=== PATIENT | female | born 1985 | race Caucasian/White ===

== ENCOUNTER 2018-11-18 22:03 | Emergency (ER) | payer OTHER | END 2018-11-19 01:59 | disposition home or self-care (01) | LOC: JER 11-19 01:59 ==

== ENCOUNTER 2019-05-05 02:30 | Inpatient (IN) | payer OTHER ==
[2019-05-05] MEDS ORDERED: AMPICILLIN SODIUM 2 GM VIAL ONE (03:26)
[2019-05-05 03:43] LABS: BASO % 0.9 % (0-2.0); EOS % 0.8 % (0-4.5); HEMATOCRIT 31.3 % (32.4-45.2); HEMOGLOBIN 10.4 GM/dL (10.7-15.3); LYMPH % 23.6 % (8-40); MCH 31.2 pg (25.7-33.7); MCHC 33.2 g/dl (32.0-36.0); MEAN CELL VOLUME 93.9 fl (80-96); MEAN PLT VOLUME 10.8 fl (7.5-11.1); NEUT % 66.7 % (42.8-82.8); PLATELET COUNT 242 K/MM3 (134-434); RBC 3.33 M/mm3 (3.60-5.2); RDW 12.9 % (11.6-15.6); WHITE BLOOD COUNT 10.4 K/mm3 (4.0-10.0)
[2019-05-05] MEDS ORDERED: OXYTOCIN 20 UNITS in 0.9% NS 20 UNIT/1,000 ML INFUS.BAG IV ONE ×2 (03:52→05:09)
[2019-05-05 04:07] LABS: INR 0.87 (0.83-1.09); PROTHROMBIN TIME (PATIENT) 10.2 SEC (9.7-13.0)
[2019-05-05 04:10] LABS: ACTIVATED PTT 25.4 SECONDS (25.2-36.5)
[2019-05-05 04:14] LABS: BLOOD UREA NITROGEN 11.2 mg/dL (7-18); CALCIUM 8.7 mg/dL (8.5-10.1); CREATININE 0.7 mg/dL (0.55-1.3)
[2019-05-05] MEDS ORDERED: LIDOCAINE HCL 1% PRESERVATIVE FREE - 30ML VIAL ONE (04:17)
[2019-05-05] MEDS: OXYTOCIN 20 UNITS in 0.9% NS 20 UNIT/1,000 ML INFUS.BAG IV SCH ×2 (04:30→05:57)
[2019-05-05] MEDS: ACETAMINOPHEN 325 MG TABLET (FP) PO PRN ×2 (04:30→08:42)
[2019-05-05] MEDS: IBUPROFEN 600 MG TABLET (FP) PO PRN ×2 (04:30→08:41)
[2019-05-05] MEDS ORDERED: IBUPROFEN 600 MG TABLET (FP) PO ONE (04:34)
[2019-05-05] MEDS ORDERED: ACETAMINOPHEN 325 MG TABLET (FP) ONE (04:35)
[2019-05-05] MEDS ORDERED: AMPICILLIN - 2 GM in SODIUM CHLORIDE 100 ML IVPB STA (04:39)
[2019-05-05] MEDS ORDERED: DEXTROSE 5%-LACTATED RINGERS 1,000 ML IV SCH (04:45)
[2019-05-05] MEDS ORDERED: BISACODYL 10 MG SUPP.RECT RC PRN (04:50)
[2019-05-05] MEDS ORDERED: WITCH HAZEL 50% (TUCKS) 40 PAD/JAR PAD TP PRN (04:50)
[2019-05-05] MEDS ORDERED: BENZOCAINE 20% 57 GM BOTTLE TP PRN (04:50)
[2019-05-05] MEDS ORDERED: BENZOCAINE 28 GM HEMORRHOIDAL OINTMENT TP PRN (04:50)
[2019-05-05] MEDS ORDERED: METHYLERGONOVINE MALEATE 0.2 MG/1 ML AMP IM PRN (04:50)
[2019-05-05] MEDS ORDERED: oxyCODONE HCL 5 MG TABLET PO PRN (04:50)
--- NOTE | 2019-05-05 05:09 | HP ---
Past Medical History - Primary Care Physician PCP:: Evette Teixeira - Admission Chief Complaint: 33 yrs 37.4 weeks admitted in active labor . onset LP at midnight History of Present Illness: pnc at [address] [place] [address] . wt gain 15 lbs Panel : 10/13/18 : O Pos, Rpr nr, Hiv nr, Hbsag neg, Hep c nr , Sickle neg , Varicella immune, Rubella immune , Pap NILM, Non 16/18 HR HPV Pos , gc/ct neg 01/22/2019 h/h 10.5/32.6, Quantiferon neg, Hiv neg ,rpr neg , hep c neg, 1 hr gct : 92 36 weeks cultures not available Sonogram 11/25/2018: 16 weeks ,sliup, edc assigned 05/06/19 NT neg . 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 Weeks Gestation by Dates: 37.4 ...EDC by Dates: 05/22/19 ...EDC by Sono: 05/06/19 (39.6 weeks by sono ) Heme/Onc: Yes: Anemia (rx po iron & pnv) Infectious Disease: No: AIDS, HIV, STD's, Tuberculosis Psych: No: Addictions, Anxiety, Bipolar, Depression, Panic, Psychosis, Schizophrenia, Other Endocrine: No: Diabetes Insipidus, Diabetes Mellitus, Hyperthyroidism, Hypothyroidism - Past Surgical History Hx Myomectomy: No Hx Transabdominal Cerclage: No Additional Surgical History: left big toe surgery in 2017 - Smoking History Smoking history: Never smoked - Alcohol/Substance Use Hx Alcohol Use: No History of Substance Use: reports: None - Social History History of Recent Travel: No Home Medications - Allergies Allergies/Adverse Reactions: Allergies Allergy/AdvReac Type Severity Reaction Status Date / Time No Known Allergies Allergy Verified 05/05/19 04:02 - Home Medications Home Medications: Ambulatory Orders Vitamins (Sjr) - 1 tab PO DAILY 05/05/19 Physical Exam - Maternity Vital Signs: Selected Entries 05/05/19 04:02 Weight 165 lb 2.30 AM : Temp; 97.6, Pulse :95, BP 120/76 Constitutional: Yes: Well Nourished, Obese Eyes: Yes: WNL, PERRL HENT: Yes: WNL Neck: Yes: WNL Cardiovascular: Yes: WNL, Regular Rate and Rhythm Lungs: Clear to auscultation Breast(s): Yes: WNL - Abdominal Exam/OB Fundal Height: 38 Number of Fetuses: Single Presentation: Vertex Contractions: Yes Regularity: Regular (3-4) Intensity: Strong Monitor Mode: External Heart Rate (range): 140-150 Heart Rate Location: Midline Category: I Accelerations: Uniform Decelerations: None - Vaginal Exam/OB Vaginal Bleediing: No Speculum Exam: No Dilatation (cm): 6 Effacement (%): 100 Amniotic Membrane Status: Intact Presentation: Vertex/Position (exam at 2.35 AM) Station: -2 - Physical Exam Musculoskeletal: Yes: WNL Extremities: Yes: WNL. No: Calf Tenderness Edema: LLE: 1+, RLE: 1+ Integumentary: Yes: WNL Deep Tendon Reflex Grade: Normal +2 ...Motor Strength: WNL Psychiatric: Yes: WNL, Alert - Labs Lab Results: CBC, BMP 05/05/19 03:25 05/05/19 03:25 Laboratory Tests 05/05/19 05/05/19 03:25 03:25 PT with INR 10.20 INR 0.87 PTT (Actin FS) 25.4 Blood Type O POSITIVE Hemorrhage Risk Assessment - Risk Factors Risk Score: 1 Risk Level: Medium Risk Problem List - Problems (1) with 39 completed weeks gestation Code(s): Z3A.39 - 39 WEEKS GESTATION OF (2) Labor established Code(s): FJC5181 - Assessment/Plan 33 yrs , 39.6 weeks admitted in active labor . discrepancy dates & sono since Gbs unknown pt was given one dose of Iv Ampicillin 2 gm as prophylaxis at 3.00 AM Plan vaginal delivery 4.08 AM fully dilated & srom , , vx +3 station , fhr 130- 90 4.10 AM
[2019-05-05 05:23] VITALS: BMI 25.8
--- NOTE | 2019-05-05 05:33 | PN ---
Delivery - Delivery Vaginal Delivery: No Problems, Spontaneous ( , vx OA position, , shoulders delivery without difficulty , immediate oral & nasal suction was done ,cord around baby's foot noted , baby girl , 9/9 placenta & membranes delievered completely at 4.15 AM .1st degree laceration vaginal bleeding , was noted , sutured with chr catgut #2/0 under local anesthesia . . 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
[2019-05-05] MEDS: FERROUS SO4 325 MG TABLET (FP) PO SCH ×2 (08:41→18:00)
[2019-05-05] MEDS ORDERED: AMPICILLIN - 1 GM in SODIUM CHLORIDE 100 ML IVPB SCH (10:00)
[2019-05-05] MEDS: PRENATAL VITAMINS W/ FOLIC ACID TABLET (FP) PO SCH (10:20)
[2019-05-06] MEDS: IBUPROFEN 600 MG TABLET (FP) PO PRN ×2 (07:44→16:58)
[2019-05-06] MEDS: ACETAMINOPHEN 325 MG TABLET (FP) PO PRN ×2 (07:45→16:59)
[2019-05-06] MEDS: FERROUS SO4 325 MG TABLET (FP) PO SCH ×2 (07:45→16:56)
--- NOTE | 2019-05-06 08:35 | PN ---
Post Progress Note - Subjective Subjective: Ambulating, breast feeding, tolerating PO, lochia decreased Post Day: 1 Type of Delivery: Vital Signs: Vital Signs Temperature 98.3 F 05/06/19 01:00 Pulse Rate 68 05/06/19 01:00 Respiratory Rate 18 05/06/19 01:00 Blood Pressure 116/73 05/06/19 01:00 O2 Sat by Pulse Oximetry (%) 100 05/05/19 05:30 Breast Exam: Yes: Other (deferred) Uterus: Yes: Fundus Firm Abdomen/GI: Yes: Abdomen soft Lochia, amount: Small Extremities: Yes: Calves non-tender Activity: Ambulating - Labs Labs: CBC WBC 10.4 K/mm3 (4.0-10.0) H 05/05/19 03:25 RBC 3.33 M/mm3 (3.60-5.2) L 05/05/19 03:25 Hgb 10.4 GM/dL (10.7-15.3) L 05/05/19 03:25 Hct 31.3 % (32.4-45.2) L 05/05/19 03:25 MCV 93.9 fl (80-96) 05/05/19 03:25 MCH 31.2 pg (25.7-33.7) 05/05/19 03:25 MCHC 33.2 g/dl (32.0-36.0) 05/05/19 03:25 RDW 12.9 % (11.6-15.6) 05/05/19 03:25 Plt Count 242 K/MM3 (134-434) 05/05/19 03:25 MPV 10.8 fl (7.5-11.1) D 05/05/19 03:25 Absolute Neuts (auto) 6.9 K/mm3 (1.5-8.0) 05/05/19 03:25 Neutrophils % 66.7 % (42.8-82.8) 05/05/19 03:25 Lymphocytes % 23.6 % (8-40) 05/05/19 03:25 Monocytes % 8.0 % (3.8-10.2) 05/05/19 03:25 Eosinophils % 0.8 % (0-4.5) D 05/05/19 03:25 Basophils % 0.9 % (0-2.0) 05/05/19 03:25 Nucleated RBC % 0 % (0-0) 05/05/19 03:25 Assessment/Plan PP # 1 in stable condition, PP precautions discussed and all questions answered.
[2019-05-06] MEDS: PRENATAL VITAMINS W/ FOLIC ACID TABLET (FP) PO SCH (09:49)
[2019-05-06 10:47] LABS: BASO % 0.8 % (0-2.0); EOS % 0.9 % (0-4.5); HEMATOCRIT 31.3 % (32.4-45.2); HEMOGLOBIN 10.3 GM/dL (10.7-15.3); LYMPH % 11.2 % (8-40); MCH 31.2 pg (25.7-33.7); MEAN CELL VOLUME 94.4 fl (80-96); MEAN PLT VOLUME 9.8 fl (7.5-11.1); MONO % 5.4 % (3.8-10.2); NEUT % 81.7 % (42.8-82.8); PLATELET COUNT 209 K/MM3 (134-434); RBC 3.31 M/mm3 (3.60-5.2); RDW 13.2 % (11.6-15.6)
[2019-05-06] MEDS ORDERED: SENNOSIDES/DOCUSATE COMBO (SENNA PLUS) TABLET (UD) PO PRN (22:00)
--- NOTE | 2019-05-07 07:32 | DS ---
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 Vital Signs: Vital Signs Temperature 98.3 F 05/06/19 22:00 Pulse Rate 68 05/06/19 22:00 Respiratory Rate 18 05/06/19 22:00 Blood Pressure 111/70 05/06/19 22:00 O2 Sat by Pulse Oximetry (%) 100 05/05/19 05:30 Constitutional: Yes: Well Nourished, No Distress, Calm Eyes: Yes: WNL, Conjunctiva Clear, EOM Intact HENT: Yes: WNL, Atraumatic, Normocephalic Neck: Yes: WNL, Supple, Trachea Midline Cardiovascular: Yes: WNL, Regular Rate and Rhythm Respiratory: Yes: WNL, Regular, CTA Bilaterally Gastrointestinal: Yes: WNL ...Rectal Exam: Yes: WNL Renal/: Yes: WNL External Genitalia: Yes: Normal ....Post : Yes: Uterus firm, Uterus non-tender, Slight lochia rubra Breast(s): Yes: WNL Musculoskeletal: Yes: WNL Extremities: Yes: WNL Edema: No Integumentary: Yes: WNL Neurological: Yes: WNL, Alert, Oriented ...Motor Strength: WNL Psychiatric: Yes: WNL, Alert, Oriented Labs: CBC, BMP 05/06/19 10:23 05/05/19 03:25 Delivery - Delivery Vaginal Delivery: No Problems, Spontaneous ( , vx OA position, , shoulders delivery without difficulty , immediate oral & nasal suction was done ,cord around baby's foot noted , baby girl , 9/9 placenta & membranes delievered completely at 4.15 AM .1st degree laceration vaginal bleeding , was noted , sutured with chr catgut #2/0 under local anesthesia . . [place] exam mucosa & sphincter intact) Type of Anesthesia: Local Episiotomy/Laceration: Vaginal Extension/lac, 1st degree EBL (cc): 300 Delivery, Single - Stages of Labor Date 1st Stage Initiatied: 05/05/19 Time 1st Stage Initiated: 00:00 Date 2nd Stage Initiated: 05/05/19 Time 2nd Stage Initiated: 04:08 Date of Delivery: 05/05/19 Time of Delivery: 04:10 Time Placenta Delivered: 04:15 Placenta: Yes: Spontaneous, Uterine Exploration - Condition of Infant Medical Technologist Microbiology/Grants Manager Present: No Infant Gender: Female Weight: 7 lb 14 oz Position: OA Total Hours ROM (Hrs/Mins): 7min - 1 Minute Total Score: 9 5 Minutes Total Score: 9 - Feeding Plan Initial Plan: Elected not to breastfeed exclusively throughout hospitalization Discharge Summary Reason For Visit: LABOR ADMIT Current Active Problems Anemia (Acute) Labor established (Acute) Normal spontaneous vaginal delivery (Acute) with 39 completed weeks gestation (Acute) Procedures: Principal: Other Procedures: none Hospital Course: uneventful Health Concerns: anemia Plan of Treatment: iron, vit Goals: hb 12, breast feeding, follow up at [facility] care 4 weeks Condition: Good - Instructions Diet, Activity, Other Instructions: Post Instructions DIET: Continue good diet high in protein, calcium, and iron rich foods. Drink at least eight (8) glasses of water daily in addition to other fluids. ct Regular diet MEDICATIONS: Continue vitamins and iron as previously directed. Motrin and Tylenol may be taken for minor discomfort. ACTIVITY: Mild to moderate exercise may be started in two (2) weeks. Take frequent rest periods. Resume normal activity after six (6) week check up. WOUND CARE OF OPERATIVE SITE: Continue use of perineal bottle until vaginal discharge stops. Keep area clean. Shower daily. Keep abdominal wound dry. Report any drainage or redness to physician. Tub baths, tampons and douches are not permitted for [address] Breast feeding & or Bottle feeding BREAST CARE: (For those that are not ): If engorgement occurs: Wear tight fitting bra. Take Tylenol or Motrin for pain. Apply cold packs (ice in bags to each breast ) FAMILY PLANNING: There are many control alternatives to pursue and they should be discussed at your first office visit. You may resume sexual activity after your six (6) week check up. (Remember, is not a contraceptive) NEXT PHYSICIAN APPOINTMENT: Be certain to call for a four -six (4-6) week appointment, unless otherwise directed. Call Clinic or got to Emergency Dept if you have any of the following: Heavy vaginal bleeding Painful urination Leg pain Unusual odor noted to vaginal bleeding High fever Red streaking noted on breast Referrals: Evette Teixeira MD [Staff Physician] - Young Feng MD [Primary Care Provider] - Disposition: HOME - Home Medications Comprehensive Discharge Medication List: Ambulatory Orders Vitamins (Sjr) - 1 tab PO DAILY 05/05/19 Acetaminophen [Tylenol .Regular Strength -] 650 mg PO Q3H PRN tablet 05/06/19 Benzocaine [Americaine 20% [place] -] 1 spray TP PRN PRN bottle 05/06/19 Ferrous Sulfate [Feosol] 325 mg PO BIDWM #60 tab 05/06/19 Ibuprofen [Motrin -] 200 mg PO Q4H PRN tablet 05/06/19 Vitamins (Sjr) - 1 tab PO DAILY #30 tablet 05/06/19 Witch [place] 50% (Tucks) [Tucks Pads -] 1 pad TP PRN PRN pad 05/06/19
--- NOTE | 2019-05-07 07:34 | PN ---
Progress Note (short form) - Note Progress Note: ppd 2 s/p , no c/o, no excess vaginal bleeding CBC, BMP 05/06/19 10:23 05/05/19 03:25 Last Vital Signs Temp Pulse Resp BP Pulse Ox 98.3 F 68 18 111/70 100 05/06/19 22:00 05/06/19 22:00 05/06/19 22:00 05/06/19 22:00 05/05/19 05:30 uterus firm , non tender lochia mild no calf tenderness plan ambulate , d/c home today follow up H care 4 weeks, cont pnv, iron
[2019-05-07] MEDS: IBUPROFEN 600 MG TABLET (FP) PO PRN (09:44)
[2019-05-07] MEDS: PRENATAL VITAMINS W/ FOLIC ACID TABLET (FP) PO SCH (09:44)
[2019-05-07] MEDS: FERROUS SO4 325 MG TABLET (FP) PO SCH (09:44)
[2019-05-07] MEDS: ACETAMINOPHEN 325 MG TABLET (FP) PO PRN (09:45)
[2019-05-07 10:01] VITALS: BP 117/65; PULSE 69; TEMP 99
== END 2019-05-07 11:25 | disposition home or self-care (01) | DRG 560 ==
LOC: JDEL 02:30 → JLDR 02:35 → J3W 06:00
PROVIDERS: ADMIT Obstetrics & Gynecology; ATTEND Obstetrics & Gynecology
PROC: 10E0XZZ Delivery of Products of Conception, External Approach (ICD-10-PCS; principal; 2019-05-05)
PROC: 0HQ9XZZ Repair Perineum Skin, External Approach (ICD-10-PCS; 2019-05-05)
PROC: 0W8NXZZ Division of Female Perineum, External Approach (ICD-10-PCS; 2019-05-05)
DX: O70.0 First degree perineal laceration during delivery (principal); O99.013 Anemia complicating pregnancy, third trimester; Z3A.39 39 weeks gestation of pregnancy; Z37.0 Single live birth
CPT/HCPCS: 36415; 59409; 80048; 85025; 85610; 85730; 86593; 86850; 86900; 86901

== ENCOUNTER 2022-10-06 15:52 | Emergency (ER) | payer OTHER ==
[2022-10-06 15:57] VITALS: BP 128/76; PULSE 84; RESP 18; TEMP 98; BMI 23.5
[2022-10-06] MEDS ORDERED: ACETAMINOPHEN 1000 MG/100 ML BAG IVPB ONE (16:53)
[2022-10-06] MEDS ORDERED: SODIUM CHLORIDE 0.9% 500 ML INFUS.BAG IV ONE (16:53)
[2022-10-06] MEDS ORDERED: METOCLOPRAMIDE HCL INJECTION 10 MG/2 ML VIAL IVPUSH ONE (16:54)
[2022-10-06] MEDS ORDERED: ACETAMINOPHEN INJECTION 100 ML IVPB ONE (17:01)
[2022-10-06] MEDS ORDERED: METOCLOPRAMIDE HCL INJECTION 10 MG/2 ML VIAL ONE (17:01)
[2022-10-06 17:16] LABS: BASO % 0.3 % (0-2.0); EOS % 0.7 % (0-4.5); HEMATOCRIT 34.9 % (32.4-45.2); LYMPH % 12.5 % (8-40); MCH 31.4 pg (25.7-33.7); MCHC 34.4 g/dl (32.0-36.0); MEAN CELL VOLUME 91.3 fl (80-96); MEAN PLT VOLUME 9.2 fl (7.5-11.1); MONO % 6.3 % (3.8-10.2); NEUT % 80.2 % (42.8-82.8); PLATELET COUNT 196 10^3/uL (134-434); RBC 3.83 M/mm3 (3.60-5.2); RDW 12.5 % (11.6-15.6); WHITE BLOOD COUNT 11.7 K/mm3 (4.0-10.0)
[2022-10-06 17:36] LABS: BLOOD UREA NITROGEN 13.8 mg/dL (7-18); CALCIUM 8.5 mg/dL (8.5-10.1)
[2022-10-06 17:40] LABS: CREATININE 0.7 mg/dL (0.55-1.3)
== END 2022-10-06 18:14 | disposition home or self-care (01) ==
LOC: JER 15:52 → JERFT 15:52
PROC: 3E033NZ Introduction of Analgesics, Hypnotics, Sedatives into Peripheral Vein, Percutaneous Approach (ICD-10-PCS; principal; 2022-10-06)
PROC: 3E033GC Introduction of Other Therapeutic Substance into Peripheral Vein, Percutaneous Approach (ICD-10-PCS; 2022-10-06)
DX: O99.351 Diseases of the nervous system complicating pregnancy, first trimester (principal); R51.9 Headache, unspecified; O21.9 Vomiting of pregnancy, unspecified; Z3A.01 Less than 8 weeks gestation of pregnancy
CPT/HCPCS: 36415; 80048; 85025; 99284-25

== ENCOUNTER 2023-03-28 17:52 | Emergency (ER) | payer OTHER ==
[2023-03-28 18:02] VITALS: BMI 28.1
[2023-03-28] MEDS ORDERED: ACETAMINOPHEN 1000 MG/100 ML BAG IVPB ONE (19:11)
[2023-03-28] MEDS ORDERED: SODIUM CHLORIDE 0.9% 500 ML INFUS.BAG IV ONE (19:11)
[2023-03-28 19:30] LABS: BASO % 0.6 % (0-2.0); EOS % 0.5 % (0-4.5); HEMATOCRIT 29.3 % (32.4-45.2); HEMOGLOBIN 10.4 GM/dL (10.7-15.3); LYMPH % 15.7 % (8-40); MCH 32.1 pg (25.7-33.7); MCHC 35.4 g/dl (32.0-36.0); MEAN CELL VOLUME 90.8 fl (80-96); MONO % 7.1 % (3.8-10.2); NEUT % 76.1 % (42.8-82.8); PLATELET COUNT 239 10^3/uL (134-434); RBC 3.23 M/mm3 (3.60-5.2); RDW 12.8 % (11.6-15.6); WHITE BLOOD COUNT 10.2 K/mm3 (4.0-10.0)
[2023-03-28 19:31] LABS: EPI CELLS >36 /uL (0-25.1); HYALINE CASTS 0 /uL (0-3.1); PH,URINE 6.5 (5.0-8.0); URINE APPEARANCE CLEAR; URINE BACTERIA 867 /uL (0-1359); URINE BILIRUBIN NEGATIVE (NEGATIVE); URINE COLOR YELLOW; URINE GLUCOSE (UA) NEGATIVE (NEGATIVE); URINE KETONE NEGATIVE (NEGATIVE); URINE LEUK ESTERASE TRACE (NEGATIVE); URINE NITRITE NEGATIVE (NEGATIVE); URINE PROTEIN NEGATIVE (NEGATIVE); URINE RBC 14 /uL (0-23.9); URINE UROBILINOGEN 0.2 mg/dL (0.2-1.0); URINE WBC 44 /uL (0-25.8)
[2023-03-28 19:40] LABS: INR 0.97 (0.83-1.09); PROTHROMBIN TIME (PATIENT) 11.3 SEC (9.7-13.0)
[2023-03-28 19:43] LABS: ACTIVATED PTT 26.1 SECONDS (25.2-36.5)
[2023-03-28 19:48] LABS: POTASSIUM 4.1 mmol/L (3.5-5.1)
[2023-03-28] MEDS ORDERED: ACETAMINOPHEN INJECTION 100 ML IVPB ONE (19:48)
[2023-03-28 19:51] LABS: ALBUMIN 2.6 g/dl (3.4-5.0); BLOOD UREA NITROGEN 7.5 mg/dL (7-18); CALCIUM 8.4 mg/dL (8.5-10.1)
[2023-03-28 19:54] LABS: CREATININE 0.6 mg/dL (0.55-1.3)
[2023-03-28 19:56] LABS: BILIRUBIN,TOTAL 0.2 mg/dL (0.2-1); TOT PROT 6.6 g/dl (6.4-8.2)
[2023-03-28 19:59] LABS: N-TERMINAL BNP 52.8 pg/ml (5-125)
[2023-03-28] MEDS ORDERED: CEPHALEXIN MONOHYDRATE 500 MG CAPSULE (UD) PO ONE (22:34)
[2023-03-28] MEDS ORDERED: CEPHALEXIN MONOHYDRATE 500 MG CAPSULE (UD) ONE (22:38)
[2023-03-29 03:10] VITALS: BP 112/70; PULSE 79; RESP 20; TEMP 98.5
== END 2023-03-29 00:50 | disposition home or self-care (01) ==
LOC: JER 17:52
PROC: 3E033NZ Introduction of Analgesics, Hypnotics, Sedatives into Peripheral Vein, Percutaneous Approach (ICD-10-PCS; principal; 2023-03-28)
DX: O26.893 Other specified pregnancy related conditions, third trimester (principal); R06.02 Shortness of breath; R07.89 Other chest pain; R05.9 Cough, unspecified; O23.93 Unspecified genitourinary tract infection in pregnancy, third trimester; R82.71 Bacteriuria; R06.00 Dyspnea, unspecified; Z20.822 Contact with and (suspected) exposure to COVID-19; Z3A.32 32 weeks gestation of pregnancy
CPT/HCPCS: 0241U-QW; 36415; 71275-TC; 80053; 81003; 83690; 83880; 84484; 85025; 85379; 85610; 85730; 86850; 86900; 86901; 87086; 93005; 93010; 93970-TC; 99285-25; Q9967

== ENCOUNTER 2023-05-24 09:20 | Inpatient (IN) | payer OTHER ==
[2023-05-24] MEDS: ELECTROLYTE-148 SOLN 1,000 ML IV SCH (09:30)
[2023-05-24] MEDS ORDERED: AMPICILLIN - 2 GM in SODIUM CHLORIDE 100 ML IVPB ONE (09:30)
[2023-05-24 10:13] LABS: BASO % 0.6 % (0-2.0); EOS % 0.8 % (0-4.5); HEMOGLOBIN 10.4 GM/dL (10.7-15.3); LYMPH % 28.4 % (8-40); MCH 30.7 pg (25.7-33.7); MCHC 33.7 g/dl (32.0-36.0); MEAN CELL VOLUME 90.9 fl (80-96); MONO % 10.7 % (3.8-10.2); NEUT % 59.5 % (42.8-82.8); PLATELET COUNT 248 10^3/uL (134-434); RBC 3.41 M/mm3 (3.60-5.2); RDW 13.2 % (11.6-15.6); WHITE BLOOD COUNT 9.3 K/mm3 (4.0-10.0)
[2023-05-24 10:19] LABS: INR 0.86 (0.83-1.09)
[2023-05-24] MEDS ORDERED: BISACODYL 10 MG SUPP.RECT RC PRN (10:20)
[2023-05-24] MEDS ORDERED: oxyCODONE HCL 5 MG TABLET PO PRN (10:20)
[2023-05-24] MEDS ORDERED: WITCH HAZEL 50% (TUCKS) 40 PAD/JAR PAD TP PRN (10:20)
[2023-05-24] MEDS ORDERED: BENZOCAINE 20% 57 GM BOTTLE TP PRN (10:20)
[2023-05-24] MEDS ORDERED: BENZOCAINE 28 GM HEMORRHOIDAL OINTMENT TP PRN (10:20)
[2023-05-24] MEDS ORDERED: ACETAMINOPHEN 325 MG TABLET (FP) PO PRN (10:20)
[2023-05-24] MEDS ORDERED: METHYLERGONOVINE MALEATE 0.2 MG/1 ML AMP IM PRN (10:20)
[2023-05-24 10:22] LABS: ACTIVATED PTT 24.6 SECONDS (25.2-36.5)
[2023-05-24] MEDS: IBUPROFEN 600 MG TABLET (FP) PO PRN ×2 (10:30→21:25)
[2023-05-24] MEDS ORDERED: OXYTOCIN 20 UNITS in 0.9% NS 20 UNIT/1,000 ML INFUS.BAG IV SCH (10:30)
[2023-05-24 10:34] LABS: POTASSIUM 3.8 mmol/L (3.5-5.1)
[2023-05-24 10:35] LABS: CALCIUM 8.8 mg/dL (8.5-10.1)
[2023-05-24 10:37] LABS: BLOOD UREA NITROGEN 15.7 mg/dL (7-18)
[2023-05-24 10:39] LABS: CREATININE 0.8 mg/dL (0.55-1.3)
[2023-05-24 11:10] VITALS: BMI 27.3
[2023-05-24 11:44] LABS: CORD BASE EXCESS -6.8 mmol/L (0-2); CORD HCO3 23.2 mmHg (20-29); CORD PCO2 65.2 mmHg (30-78); CORD pH 7.17 (7.14-7.44)
[2023-05-24 12:01] LABS: CORD BASE EXCESS -4.8 mmol/L (0-2); CORD HCO3 21.9 mmHg (20-29); CORD PCO2 45.8 mmHg (30-78); CORD pH 7.297 (7.14-7.44)
[2023-05-24] MEDS: AMPICILLIN - 1 GM in SODIUM CHLORIDE 100 ML IVPB SCH ×3 (12:45→20:31)
[2023-05-24] MEDS ORDERED: oxyCODONE HCL 5 MG TABLET ONE (13:07)
[2023-05-24 14:50] VITALS: RESP 18
[2023-05-25] MEDS: IBUPROFEN 600 MG TABLET (FP) PO PRN ×3 (01:41→20:17)
[2023-05-25 07:26] LABS: BASO % 0.5 % (0-2.0); EOS % 0.8 % (0-4.5); HEMATOCRIT 25.3 % (32.4-45.2); HEMOGLOBIN 8.4 GM/dL (10.7-15.3); LYMPH % 21.9 % (8-40); MCH 30.6 pg (25.7-33.7); MCHC 33.3 g/dl (32.0-36.0); MEAN CELL VOLUME 92.1 fl (80-96); MEAN PLT VOLUME 10.2 fl (7.5-11.1); MONO % 9.5 % (3.8-10.2); NEUT % 67.3 % (42.8-82.8); PLATELET COUNT 172 10^3/uL (134-434); RBC 2.74 M/mm3 (3.60-5.2); RDW 13.3 % (11.6-15.6); WHITE BLOOD COUNT 12.1 K/mm3 (4.0-10.0)
[2023-05-25] MEDS: ELECTROLYTE-148 SOLN 1,000 ML IV SCH (10:28)
[2023-05-25] MEDS ORDERED: SENNOSIDES/DOCUSATE COMBO (SENNA PLUS) TABLET (UD) PO PRN (22:00)
[2023-05-26 10:03] VITALS: BP 110/68; PULSE 69; TEMP 98.2
[2023-05-26] MEDS: IBUPROFEN 600 MG TABLET (FP) PO PRN (11:56)
== END 2023-05-26 16:32 | disposition home or self-care (01) | DRG 560 ==
LOC: JERBED 09:20 → JLDR 09:53 → J3W 14:13
PROVIDERS: ADMIT Obstetrics & Gynecology; ATTEND Obstetrics & Gynecology
PROC: 0HQ9XZZ Repair Perineum Skin, External Approach (ICD-10-PCS; principal; 2023-05-24)
PROC: 10E0XZZ Delivery of Products of Conception, External Approach (ICD-10-PCS; 2023-05-24)
DX: O70.0 First degree perineal laceration during delivery (principal); O69.81X0 Labor and delivery complicated by cord around neck, without compression, not applicable or unspecified; Z3A.39 39 weeks gestation of pregnancy; Z37.0 Single live birth
CPT/HCPCS: 36415; 36600; 59025; 76801-TC; 80048; 80053; 80307; 81003; 82803; 85025; 85610; 85730; 86780; 86850; 86900; 86901; 87086; 87340; 87389